=== PATIENT | male | born 1940 | race African-American/Black ===

== ENCOUNTER 2023-09-10 13:01 | Emergency (ER) | payer MEDICARE, OTHER ==
[~2023-09-10] VITALS: Ht 177.8 cm; Wt 91.0 kg
[2023-09-10 13:02] VITALS: BP 0/0
[2023-09-10 13:15] VITALS: PULSE 91; RESP 16
[2023-09-10] MEDS ORDERED: NOREPINEPHRINE 8MG/250ML PMX 250 ML IV PRN (13:15)
== END 2023-09-10 14:36 ==
LOC: ER 13:01 → EDBEDREQ 14:09 → ER 14:36
DX: J96.01 Acute respiratory failure with hypoxia (principal); I46.9 Cardiac arrest, cause unspecified; J44.1 Chronic obstructive pulmonary disease with (acute) exacerbation
CPT/HCPCS: 36556; 31500; 92950; 99291; 71045; 93005; J3490; 94003